=== PATIENT | female | born 1975 | race Caucasian/White ===

== ENCOUNTER → 2019-12-14 12:54 | Outpatient (CLI) | payer OTHER, MEDICAID, SELFPAY ==
--- NOTE | 2019-12-14 12:57 | DI.RAD.S_ITS ---
PROCEDURE: XR CHEST 2V INDICATIONS: pectus excavatum TECHNIQUE: 2 views of the chest were acquired. COMPARISON: None. FINDINGS: Surgical changes and devices: None. Lungs and pleura: Lungs are clear. No pleural effusions or pneumothorax. Lungs are hyperexpanded. Mediastinum: Mediastinal contours are normal. Heart size is normal. Bones and chest wall: No suspicious bony abnormalities. Soft tissues appear unremarkable. Mild to moderate pectus excavatum is present. IMPRESSION: No acute pulmonary process. Dictated by: Leticia Mancera M.D. on 12/14/2019 at 16:12 Approved by: Leticia Mancera M.D. on 12/14/2019 at 16:13
--- NOTE | 2019-12-14 12:57 | DI.RAD.S_ITS ---
PROCEDURE: XR SHOULDER LT MIN 2V INDICATIONS: Left shoulder pain TECHNIQUE: 3 views of the shoulder were acquired. COMPARISON: None. FINDINGS: Bones: No fractures or dislocations. No suspicious bony lesions. Visualized ribs appear intact. Mild acromioclavicular degenerative narrowing. Mild high riding appearance of the humeral head. Soft tissues: No suspicious soft tissue calcifications. IMPRESSION: 1. High riding appearance of the humeral head, which can be indicative of rotator cuff pathology. Dictated by: Leticia Mancera M.D. on 12/14/2019 at 16:13 Approved by: Leticia Mancera M.D. on 12/14/2019 at 16:16
[2019-12-14 14:04] LABS: Hemoglobin 14.1 g/dL (12.0-16.0)
== END ==
PROVIDERS: PCP Family Medicine; Visit Provider Family Medicine
DX: R07.9 Chest pain, unspecified (principal); M25.512 Pain in left shoulder; Q67.6 Pectus excavatum
CPT/HCPCS: 36415; 71046; 73030; 85018

== ENCOUNTER → 2019-12-22 16:57 | Outpatient (CLI) | payer OTHER, MEDICAID, SELFPAY ==
--- NOTE | 2019-12-27 16:56 | PM.PFT.1 ---
Pulmonary Function Test Referral & Results Date Patient Seen: 12/22/19 Requesting provider: Chu Haider Indication: Pectus excavatum Results: The spirometry demonstrates an FVC of 4.54 L which is 113% of predicted. The FEV1 was measured at 3.57 L which is 111% of predicted. The FEV1/FVC ratio was 79 which is 96% of predicted. Following the administration of bronchodilator there was no significant change to above normal numbers. Lung volumes show an SVC of 4.25 L which is 115% of predicted. The diffusing capacity was measured at 30.31 L which is 107% of predicted. The maximum voluntary ventilation was normal Interpretation: This study demonstrates normal pulmonary function
== END ==
PROVIDERS: PCP Family Medicine; Visit Provider Family Medicine
DX: Q67.6 Pectus excavatum (principal)
CPT/HCPCS: 94060; 94726; 94729

== ENCOUNTER 2020-02-08 13:45 | Outpatient (RCR) | payer OTHER, MEDICAID, SELFPAY ==
--- NOTE | 2020-01-12 17:00 | PT.OPPOC ---
Physical, Occupational & Speech Therapy At [facility] Current Diagnoses Other shoulder lesions, unspecified shoulder (01/12/20) Visit Care Team Role Provider Type Chu Haider MD Attending Provider Physician Primary Care Provider Referring Provider Specialty: Family Practice Address: [address] [place] [address], [id number] Email: [email or web address] Plan Of Care PT-OP-T Assessment and Plan Start: 01/13/20 10:08 Freq: Status: Active Protocol: Document 01/12/20 16:50 (Rec: 01/13/20 13:05 [email or web address]) Physical Therapy Assessment Rehab Potential Rehabilitation Potential Excellent Evaluation Complexity Number of Personal Factors/Comorbidities 0 Number of Body Systems Impaired 1-2 Clinical Presentation at Evaluation Stable Impairments Impairments Functional Activities, Functional Mobility,Pain, Posture,ROM,Soft Tissue Mobility,Strength Goals strength Impairment Pt has 4- to 4+ MMT strength for L shoulder Detention Goal (LTG) Pt will improve her L shoulder strength to 5/5 without any disomfort LTG Duration 8 weeks shoulder IR Impairment lack of IR to peggy/doff clothes Short Term Goal (STG) Pt will increase her IR 10 degrees to improve mobility to wear clothes. STG Duration 4 weeks Glass Handler Goal (LTG) Pt will be able to peggy/doff clothes without any shoulder discomfort. LTG Duration 8 weeks return to sports Impairment unable to do push up/ mountain biking Short Term Goal (STG) Pt will be able to do 10 push ups a day without discomfort STG Duration 4 weeks Detention Goal (LTG) Pt will be able to do 20-30 push ups a day without shoulder discomfort and return to mountain biking twice a month. LTG Duration 8 weeks Quickdash Impairment pt scores 22.72 Detention Goal (LTG) Pt will score below 10 on quickdash to improve her quality of life. LTG Duration 8 weeks Assessment Summary Assessment Pt is a 44 yo right handed dominant female presented to clinic L shoulder pain and weakness. Upon assessment, pt presents possible supraspinatus and infraspinatus strain d/t a fall. Her radiating pain to bicep was reproduced with resistive ER and active end range of IR, but negative for elbow flexion or biceps special tests. Pt currently has close to WNL ROM but still has weakness for overhead activities such as peggy/doff clothes and reaching. pt will benefit from skilled therapy to improve her overall ROM and overhead strength in order to return to her sports activities such as mountain biking and daily push ups. Physical Therapy Plan Frequency and Duration Frequency of Treatment 2x/Week Duration of Treatment 8 weeks Plan of Care Start Date 01/13/20 Plan of Care End Date 03/13/20 Therapeutic Interventions Therapeutic Interventions Home Exercise Program,Joint Mobilizations,Manual Therapy, Neuromuscular Re-education, Patient/Caregiver Education, Self-Care/Home Management,Soft Tissue Mobilization,Taping, Therapeutic Activities, Therapeutic Exercises Modalities Cold Pack/Ice Massage,Electric Stimulation,Hot Packs, Infrared Therapy,Iontophoresis ,Traction- Mechanical, Ultrasound Next Visit Focus/Plan Next Note Type Treatment Note Next Visit Plan start with UBE manual therapy for posterior glide at GH IR and ER mobility scap stabilization T/S mobility isometric strengtehning Plan of Care Dates Plan of Care Start Date 01/13/20 Plan of Care End Date 03/13/20 Electronically Signed by: Luis Miguel Guillory PT 01/13/20 [id number] Please Sign and Return: I have reviewed this Plan of Care and certify that the skilled therapy services above are required to meet the patient?s needs. Physician Signature Date Printed Name and Credentials Clinical Instructor Signature Printed Name and Credentials
--- NOTE | 2020-01-12 17:00 | PT.OIE ---
Current Diagnoses Other shoulder lesions, unspecified shoulder (01/12/20) Past Medical History (Last Updated 01/10/20 @ 20:14 by Rebecca Vasquez) Rosacea (Chronic ~2012) Past Surgical History (Last Updated 01/10/20 @ 20:14 by Rebecca Vasquez) Anesthesia (Resolved) History of appendectomy (Resolved ~1987) History of repair of ACL (Resolved ~2001) Visit Care Team Role Provider Type Chu Haider MD Attending Provider Physician Primary Care Provider Referring Provider Specialty: [facility] Address: [address] [place] [address] Email: [email or web address] Physical Therapy Initial Evaluation PT-OP-A Visit Information Start: 01/13/20 10:08 Freq: Status: Active Protocol: Document 01/12/20 16:50 HH (Rec: 01/13/20 10:21 HH [email or web address]) Out-Patient Physical Therapy Visit Information Visit Information Visit Type Initial Evaluation Visit Start Time 16:50 Visit Stop Time 17:30 Total Visit Minutes 40 Visit Number 1/9 Number of TEST PULLER Visits 0 Evaluation Information Evaluation Date 01/12/20 PT-OP-B Current Condition Start: 01/13/20 10:08 Freq: Status: Active Protocol: Document 01/12/20 16:50 HH (Rec: 01/13/20 10:21 HH [email or web address]) Current Condition History of Current Condition Onset Date Sep, 2019 Current Complaints L shoulder pain, weakness and difficulty with overhead movements History of Current Condition Pt is a44 yo R- handed dominant female presented to clinic with L shoulder pain along with weakness for overhead activities. Pain started from a fall September who landed on her deltoid region. Patient was not able to raise her arms above her head for the following few weeks with significant pain. She states it is not too painful now, and range of motion is slowly improving. There is no numbness or tingling associated with it. she describes she has good or bad days but does not know why. She went to [employer] country skiing recently and that actually made her feel better. She has tried ibuprofen and mainly just ignoring it and doing maneuvers where she does not have to manipulate her L shoulder much. Pt had a x-ray on 12/14/19 and was dx with Subacromial bursitis and impingement syndrome of the shoulder with supraspinatus tendinitis. On the other hand, pt had a very active lifestyle before the injury who does 20-30 push ups a day and mountain biking couple times a month. Prior Treatments and Tests x-ray 12/14/19 1. High riding appearance of the humeral head, which can be indicative of rotator cuff pathology. Treatment Goals Patient/Caregiver Goals 1. To be able to do push ups 20/30 times a day 2. mountain bike multiple times a month 3. peggy/doff her clothes without pain Prior Functional Status Baseline Function- ADL's Independent Baseline Function- Mobility Independent Current Functional Impairments (Reported) Functional Limitations- ADL's modified independent with primarily using her R LE to assist in peggy/doff clothes. Functional Limitations- Recreation/ unable to do push up and Hobbies returne to mountain biking. PT-OP-C Subjective Start: 01/13/20 10:08 Freq: Status: Active Protocol: Document 01/12/20 16:50 HH (Rec: 01/13/20 10:21 [email or web address]) OP-PT Subjective Patient Comments Patient Comments its gotten a lot better than before but still have difficulty doing overhead activtiies. Patient Questionnaires Quick Dash- Upper Extremity Quick Dash UE Score 22.72 Quick Dash UE Impairment 20 to 39% Impaired (Score 20- 39) PT-OP-E Functional Tests Start: 01/13/20 10:08 Freq: Status: Active Protocol: Document 01/12/20 16:50 HH (Rec: 01/13/20 13:06 [email or web address]) Functional Tests Apley's Scratch Test Action 2- Left top of R trap Action 2- Right top of L scap spine Action 3- Left inferior boarder of R scap Action 3- Right medial boarder of L scap PT-OP-F Manual Assessment Start: 01/13/20 10:08 Freq: Status: Active Protocol: Document 01/12/20 16:50 HH (Rec: 01/13/20 13:05 [email or web address]) Manual Assessments Soft Tissue Assessment Soft Tissue Mobility Assessment Tenderness to pressure at supraspinatus and infraspinatus insertion. Joint Mobility Assessment Joint Mobility Assessment mod anterior GH translation during ER/ IR and extension compared to R PT-OP-K Range of Motion Start: 01/13/20 10:08 Freq: Status: Active Protocol: Document 01/12/20 16:50 HH (Rec: 01/13/20 13:05 [email or web address]) Shoulder Goniometric Range of Motion Shoulder Right Active Shoulder ROM WFL Yes Testing Position Standing Flexion 175 Extension 60 Abduction 170 External Rotation at 90 degrees 90 Abduction Internal Rotation 90 Left Active Shoulder ROM WFL Yes Testing Position Standing Flexion 165 Extension 55 Abduction 160 External Rotation at 90 degrees 88 Abduction Internal Rotation 72 Shoulder ROM Limitations Shoulder ROM Limitations Soft Tissue Tightness,Pain Comments radiating L shoulder pain to bicep during internal rotation at endrange PT-OP-L Special Tests Start: 01/13/20 10:08 Freq: Status: Active Protocol: Document 01/12/20 16:50 HH (Rec: 01/13/20 13:05 [email or web address]) Special Tests Shoulder Special Tests elbow lift Test Results +ve L Comments instruction : L hand on right shoulder and lift elbow pt unable to perform lift off. Lift-Off Rotator Cuff Test Results -ve Yergason's Biceps Test Results -ve Speed's Biceps Test Results -ve Empty Can Test Results +ve L Comments unable to point thumb down to floor d/t pain Belly Press Test Results -ve B AC Joint Compression Test Results +ve L side PT-OP-M Strength Start: 01/13/20 10:08 Freq: Status: Active Protocol: Document 01/12/20 16:50 HH (Rec: 01/13/20 13:05 [email or web address]) Shoulder Strength Shoulder Manual Muscle Testing Right Flexion 5 Normal Extension 5 Normal Abduction (C5) 5 Normal Adduction 5 Normal External Rotation 5 Normal Internal Rotation 5 Normal Reason Not Measured Pain Left Flexion 4 Good Extension 4+ Good+ Abduction (C5) 4- Good- External Rotation 4- Good- Internal Rotation 4+ Good+ Reason Not Measured Pain Comments L radiating shoulder pain reproduced with resisted L ER with elbow at 90 degrees. PT-OP-T Assessment and Plan Start: 01/13/20 10:08 Freq: Status: Active Protocol: Document 01/12/20 16:50 HH (Rec: 01/13/20 13:05 [email or web address]) Physical Therapy Assessment Rehab Potential Rehabilitation Potential Excellent Evaluation Complexity Number of Personal Factors/Comorbidities 0 Number of Body Systems Impaired 1-2 Clinical Presentation at Evaluation Stable Impairments Impairments Functional Activities, Functional Mobility,Pain, Posture,ROM,Soft Tissue Mobility,Strength Goals strength Impairment Pt has 4- to 4+ MMT strength for L shoulder Assisted Goal (LTG) Pt will improve her L shoulder strength to 5/5 without any disomfort LTG Duration 8 weeks shoulder IR Impairment lack of IR to peggy/doff clothes Short Term Goal (STG) Pt will increase her IR 10 degrees to improve mobility to wear clothes. STG Duration 4 weeks Criminal Attorney Goal (LTG) Pt will be able to peggy/doff clothes without any shoulder discomfort. LTG Duration 8 weeks return to sports Impairment unable to do push up/ mountain biking Short Term Goal (STG) Pt will be able to do 10 push ups a day without discomfort STG Duration 4 weeks Criminal Attorney Goal (LTG) Pt will be able to do 20-30 push ups a day without shoulder discomfort and return to mountain biking twice a month. LTG Duration 8 weeks Quickdash Impairment pt scores 22.72 Criminal Attorney Goal (LTG) Pt will score below 10 on quickdash to improve her quality of life. LTG Duration 8 weeks Assessment Summary Assessment Pt is a 44 yo right handed dominant female presented to clinic L shoulder pain and weakness. Upon assessment, pt presents possible supraspinatus and infraspinatus strain d/t a fall. Her radiating pain to bicep was reproduced with resistive ER and active end range of IR, but negative for elbow flexion or biceps special tests. Pt currently has close to WNL ROM but still has weakness for overhead activities such as peggy/doff clothes and reaching. pt will benefit from skilled therapy to improve her overall ROM and overhead strength in order to return to her sports activities such as mountain biking and daily push ups. Physical Therapy Plan Frequency and Duration Frequency of Treatment 2x/Week Duration of Treatment 8 weeks Plan of Care Start Date 01/13/20 Plan of Care End Date 03/13/20 Therapeutic Interventions Therapeutic Interventions Home Exercise Program,Joint Mobilizations,Manual Therapy, Neuromuscular Re-education, Patient/Caregiver Education, Self-Care/Home Management,Soft Tissue Mobilization,Taping, Therapeutic Activities, Therapeutic Exercises Modalities Cold Pack/Ice Massage,Electric Stimulation,Hot Packs, Infrared Therapy,Iontophoresis ,Traction- Mechanical, Ultrasound Next Visit Focus/Plan Next Note Type Treatment Note Next Visit Plan start with UBE manual therapy for posterior glide at IR and ER mobility scap stabilization T/S mobility isometric strengtehning
--- NOTE | 2020-01-13 13:06 | PT.OIE ---
Current Diagnoses Other shoulder lesions, unspecified shoulder (01/12/20) Past Medical History (Last Updated 01/10/20 @ 20:14 by Rebecca Vasquez) Rosacea (Chronic ~2012) Past Surgical History (Last Updated 01/10/20 @ 20:14 by Rebecca Vasquez) Anesthesia (Resolved) History of appendectomy (Resolved ~1987) History of repair of ACL (Resolved ~2001) Visit Care Team Role Provider Type Chu Haider MD Attending Provider Physician Primary Care Provider Referring Provider Specialty: [facility] Address: [address] [place] [address] Email: [email or web address] Physical Therapy Initial Evaluation PT-OP-A Visit Information Start: 01/13/20 10:08 Freq: Status: Active Protocol: Document 01/12/20 16:50 HH (Rec: 01/13/20 10:21 HH [email or web address]) Out-Patient Physical Therapy Visit Information Visit Information Visit Type Initial Evaluation Visit Start Time 16:50 Visit Stop Time 17:30 Total Visit Minutes 40 Visit Number 1/9 Number of WRAPPER CASER Visits 0 Evaluation Information Evaluation Date 01/12/20 PT-OP-B Current Condition Start: 01/13/20 10:08 Freq: Status: Active Protocol: Document 01/12/20 16:50 HH (Rec: 01/13/20 10:21 HH [email or web address]) Current Condition History of Current Condition Onset Date Sep, 2019 Current Complaints L shoulder pain, weakness and difficulty with overhead movements History of Current Condition Pt is a44 yo R- handed dominant female presented to clinic with L shoulder pain along with weakness for overhead activities. Pain started from a fall September who landed on her deltoid region. Patient was not able to raise her arms above her head for the following few weeks with significant pain. She states it is not too painful now, and range of motion is slowly improving. There is no numbness or tingling associated with it. she describes she has good or bad days but does not know why. She went to [employer] country skiing recently and that actually made her feel better. She has tried ibuprofen and mainly just ignoring it and doing maneuvers where she does not have to manipulate her L shoulder much. Pt had a x-ray on 12/14/19 and was dx with Subacromial bursitis and impingement syndrome of the shoulder with supraspinatus tendinitis. On the other hand, pt had a very active lifestyle before the injury who does 20-30 push ups a day and mountain biking couple times a month. Prior Treatments and Tests x-ray 12/14/19 1. High riding appearance of the humeral head, which can be indicative of rotator cuff pathology. Treatment Goals Patient/Caregiver Goals 1. To be able to do push ups 20/30 times a day 2. mountain bike multiple times a month 3. peggy/doff her clothes without pain Prior Functional Status Baseline Function- ADL's Independent Baseline Function- Mobility Independent Current Functional Impairments (Reported) Functional Limitations- ADL's modified independent with primarily using her R LE to assist in peggy/doff clothes. Functional Limitations- Recreation/ unable to do push up and Hobbies returne to mountain biking. PT-OP-C Subjective Start: 01/13/20 10:08 Freq: Status: Active Protocol: Document 01/12/20 16:50 HH (Rec: 01/13/20 10:21 [email or web address]) OP-PT Subjective Patient Comments Patient Comments its gotten a lot better than before but still have difficulty doing overhead activtiies. Patient Questionnaires Quick Dash- Upper Extremity Quick Dash UE Score 22.72 Quick Dash UE Impairment 20 to 39% Impaired (Score 20- 39) PT-OP-E Functional Tests Start: 01/13/20 10:08 Freq: Status: Active Protocol: Document 01/12/20 16:50 HH (Rec: 01/13/20 13:06 [email or web address]) Functional Tests Apley's Scratch Test Action 2- Left top of R trap Action 2- Right top of L scap spine Action 3- Left inferior boarder of R scap Action 3- Right medial boarder of L scap PT-OP-F Manual Assessment Start: 01/13/20 10:08 Freq: Status: Active Protocol: Document 01/12/20 16:50 HH (Rec: 01/13/20 13:05 [email or web address]) Manual Assessments Soft Tissue Assessment Soft Tissue Mobility Assessment Tenderness to pressure at supraspinatus and infraspinatus insertion. Joint Mobility Assessment Joint Mobility Assessment mod anterior GH translation during ER/ IR and extension compared to R PT-OP-K Range of Motion Start: 01/13/20 10:08 Freq: Status: Active Protocol: Document 01/12/20 16:50 HH (Rec: 01/13/20 13:05 [email or web address]) Shoulder Goniometric Range of Motion Shoulder Right Active Shoulder ROM WFL Yes Testing Position Standing Flexion 175 Extension 60 Abduction 170 External Rotation at 90 degrees 90 Abduction Internal Rotation 90 Left Active Shoulder ROM WFL Yes Testing Position Standing Flexion 165 Extension 55 Abduction 160 External Rotation at 90 degrees 88 Abduction Internal Rotation 72 Shoulder ROM Limitations Shoulder ROM Limitations Soft Tissue Tightness,Pain Comments radiating L shoulder pain to bicep during internal rotation at endrange PT-OP-L Special Tests Start: 01/13/20 10:08 Freq: Status: Active Protocol: Document 01/12/20 16:50 HH (Rec: 01/13/20 13:05 [email or web address]) Special Tests Shoulder Special Tests elbow lift Test Results +ve L Comments instruction : L hand on right shoulder and lift elbow pt unable to perform lift off. Lift-Off Rotator Cuff Test Results -ve Yergason's Biceps Test Results -ve Speed's Biceps Test Results -ve Empty Can Test Results +ve L Comments unable to point thumb down to floor d/t pain Belly Press Test Results -ve B AC Joint Compression Test Results +ve L side PT-OP-M Strength Start: 01/13/20 10:08 Freq: Status: Active Protocol: Document 01/12/20 16:50 HH (Rec: 01/13/20 13:05 [email or web address]) Shoulder Strength Shoulder Manual Muscle Testing Right Flexion 5 Normal Extension 5 Normal Abduction (C5) 5 Normal Adduction 5 Normal External Rotation 5 Normal Internal Rotation 5 Normal Reason Not Measured Pain Left Flexion 4 Good Extension 4+ Good+ Abduction (C5) 4- Good- External Rotation 4- Good- Internal Rotation 4+ Good+ Reason Not Measured Pain Comments L radiating shoulder pain reproduced with resisted L ER with elbow at 90 degrees. PT-OP-T Assessment and Plan Start: 01/13/20 10:08 Freq: Status: Active Protocol: Document 01/12/20 16:50 HH (Rec: 01/13/20 13:05 [email or web address]) Physical Therapy Assessment Rehab Potential Rehabilitation Potential Excellent Evaluation Complexity Number of Personal Factors/Comorbidities 0 Number of Body Systems Impaired 1-2 Clinical Presentation at Evaluation Stable Impairments Impairments Functional Activities, Functional Mobility,Pain, Posture,ROM,Soft Tissue Mobility,Strength Goals strength Impairment Pt has 4- to 4+ MMT strength for L shoulder Nursing Home Goal (LTG) Pt will improve her L shoulder strength to 5/5 without any disomfort LTG Duration 8 weeks shoulder IR Impairment lack of IR to peggy/doff clothes Short Term Goal (STG) Pt will increase her IR 10 degrees to improve mobility to wear clothes. STG Duration 4 weeks Foreign Language Teacher Goal (LTG) Pt will be able to peggy/doff clothes without any shoulder discomfort. LTG Duration 8 weeks return to sports Impairment unable to do push up/ mountain biking Short Term Goal (STG) Pt will be able to do 10 push ups a day without discomfort STG Duration 4 weeks Foreign Language Teacher Goal (LTG) Pt will be able to do 20-30 push ups a day without shoulder discomfort and return to mountain biking twice a month. LTG Duration 8 weeks Quickdash Impairment pt scores 22.72 Foreign Language Teacher Goal (LTG) Pt will score below 10 on quickdash to improve her quality of life. LTG Duration 8 weeks Assessment Summary Assessment Pt is a 44 yo right handed dominant female presented to clinic L shoulder pain and weakness. Upon assessment, pt presents possible supraspinatus and infraspinatus strain d/t a fall. Her radiating pain to bicep was reproduced with resistive ER and active end range of IR, but negative for elbow flexion or biceps special tests. Pt currently has close to WNL ROM but still has weakness for overhead activities such as peggy/doff clothes and reaching. pt will benefit from skilled therapy to improve her overall ROM and overhead strength in order to return to her sports activities such as mountain biking and daily push ups. Physical Therapy Plan Frequency and Duration Frequency of Treatment 2x/Week Duration of Treatment 8 weeks Plan of Care Start Date 01/13/20 Plan of Care End Date 03/13/20 Therapeutic Interventions Therapeutic Interventions Home Exercise Program,Joint Mobilizations,Manual Therapy, Neuromuscular Re-education, Patient/Caregiver Education, Self-Care/Home Management,Soft Tissue Mobilization,Taping, Therapeutic Activities, Therapeutic Exercises Modalities Cold Pack/Ice Massage,Electric Stimulation,Hot Packs, Infrared Therapy,Iontophoresis ,Traction- Mechanical, Ultrasound Next Visit Focus/Plan Next Note Type Treatment Note Next Visit Plan start with UBE manual therapy for posterior glide at IR and ER mobility scap stabilization T/S mobility isometric strengtehning
--- NOTE | 2020-01-14 13:00 | PT.OTN ---
Current Diagnoses Other shoulder lesions, unspecified shoulder (01/14/20) Physical Therapy Treatment Note PT-OP-A Visit Information Start: 01/13/20 10:08 Freq: Status: Active Protocol: Document 01/14/20 13:00 DLM (Rec: 01/15/20 17:40 DLM [id number]) Out-Patient Physical Therapy Visit Information Visit Information Visit Type Treatment Note Visit Start Time 13:00 Visit Stop Time 13:50 Total Visit Minutes 50 Visit Number 2/9 Number of OPERATIONAL RISK CONSULTANT Visits 0 Evaluation Information Evaluation Date 01/12/20 PT-OP-B Current Condition Start: 01/13/20 10:08 Freq: Status: Active Protocol: Document 01/12/20 16:50 HH (Rec: 01/13/20 10:21 HH [email or web address]) Current Condition History of Current Condition Onset Date Sep, 2019 Current Complaints L shoulder pain, weakness and difficulty with overhead movements History of Current Condition Pt is a44 yo R- handed dominant female presented to clinic with L shoulder pain along with weakness for overhead activities. Pain started from a fall September who landed on her deltoid region. Patient was not able to raise her arms above her head for the following few weeks with significant pain. She states it is not too painful now, and range of motion is slowly improving. There is no numbness or tingling associated with it. she describes she has good or bad days but does not know why. She went to [employer] skiing recently and that actually made her feel better. She has tried ibuprofen and mainly just ignoring it and doing maneuvers where she does not have to manipulate her L shoulder much. Pt had a x-ray on 12/14/19 and was dx with Subacromial bursitis and impingement syndrome of the shoulder with supraspinatus tendinitis. On the other hand, pt had a very active lifestyle before the injury who does 20-30 push ups a day and mountain biking couple times a month. Prior Treatments and Tests x-ray 12/14/19 1. High riding appearance of the humeral head, which can be indicative of rotator cuff pathology. Treatment Goals Patient/Caregiver Goals 1. To be able to do push ups 20/30 times a day 2. mountain bike multiple times a month 3. peggy/doff her clothes without pain Prior Functional Status Baseline Function- ADL's Independent Baseline Function- Mobility Independent Current Functional Impairments (Reported) Functional Limitations- ADL's modified independent with primarily using her R LE to assist in peggy/doff clothes. Functional Limitations- Recreation/ unable to do push up and Hobbies returne to mountain biking. PT-OP-C Subjective Start: 01/13/20 10:08 Freq: Status: Active Protocol: Document 01/14/20 13:00 DLM (Rec: 01/15/20 17:40 DLM [id number]) OP-PT Subjective Patient Comments Patient Comments She has been unsure of what exercises to do for her shoulder. She is only getting pain with certain movements such as putting on a shirt. PT-OP-E Functional Tests Start: 01/13/20 10:08 Freq: Status: Active Protocol: Document 01/12/20 16:50 HH (Rec: 01/13/20 13:06 HH [email or web address]) Functional Tests Apley's Scratch Test Action 2- Left top of R trap Action 2- Right top of L scap spine Action 3- Left inferior boarder of R scap Action 3- Right medial boarder of L scap PT-OP-F Manual Assessment Start: 01/13/20 10:08 Freq: Status: Active Protocol: Document 01/12/20 16:50 HH (Rec: 01/13/20 13:05 HH [email or web address]) Manual Assessments Soft Tissue Assessment Soft Tissue Mobility Assessment Tenderness to pressure at supraspinatus and infraspinatus insertion. Joint Mobility Assessment Joint Mobility Assessment mod anterior GH translation during ER/ IR and extension compared to R PT-OP-K Range of Motion Start: 01/13/20 10:08 Freq: Status: Active Protocol: Document 01/12/20 16:50 HH (Rec: 01/13/20 13:05 HH [email or web address]) Shoulder Goniometric Range of Motion Shoulder Right Active Shoulder ROM WFL Yes Testing Position Standing Flexion 175 Extension 60 Abduction 170 External Rotation at 90 degrees 90 Abduction Internal Rotation 90 Left Active Shoulder ROM WFL Yes Testing Position Standing Flexion 165 Extension 55 Abduction 160 External Rotation at 90 degrees 88 Abduction Internal Rotation 72 Shoulder ROM Limitations Shoulder ROM Limitations Soft Tissue Tightness,Pain Comments radiating L shoulder pain to bicep during internal rotation at endrange PT-OP-L Special Tests Start: 01/13/20 10:08 Freq: Status: Active Protocol: Document 01/12/20 16:50 HH (Rec: 01/13/20 13:05 [email or web address]) Special Tests Shoulder Special Tests elbow lift Test Results +ve L Comments instruction : L hand on right shoulder and lift elbow pt unable to perform lift off. Lift-Off Rotator Cuff Test Results -ve Yergason's Biceps Test Results -ve Speed's Biceps Test Results -ve Empty Can Test Results +ve L Comments unable to point thumb down to floor d/t pain Belly Press Test Results -ve B AC Joint Compression Test Results +ve L side PT-OP-M Strength Start: 01/13/20 10:08 Freq: Status: Active Protocol: Document 01/12/20 16:50 HH (Rec: 01/13/20 13:05 [email or web address]) Shoulder Strength Shoulder Manual Muscle Testing Right Flexion 5 Normal Extension 5 Normal Abduction (C5) 5 Normal Adduction 5 Normal External Rotation 5 Normal Internal Rotation 5 Normal Reason Not Measured Pain Left Flexion 4 Good Extension 4+ Good+ Abduction (C5) 4- Good- External Rotation 4- Good- Internal Rotation 4+ Good+ Reason Not Measured Pain Comments L radiating shoulder pain reproduced with resisted L ER with elbow at 90 degrees. PT-OP-Q Treatments Start: 01/13/20 10:08 Freq: Status: Active Protocol: Document 01/14/20 13:00 DLM (Rec: 01/15/20 17:40 DLM [id number]) Cardio Equipment Upper Body Ergometer (UBE) Duration (Minutes) 6 Height shoulder height Other 3' forward and 3' backwards Therapeutic Exercises Sidelying Exercises Stabalization Circles Sidelying Exercise Name small circles with UE at 90 degrees ABD Side left Resistance slow pace for stabalization training Reps/Minutes 10 CW/10 CCW x 3 sets Shoulder ER Sidelying Exercise Name External rotation Side left Resistance 0-1# Reps/Minutes 10 reps w/o wt and 10 reps 1# Shoulder Abduction Sidelying Exercise Name painfree ROm Side left Resistance active Reps/Minutes 10 reps Standing Exercises Shoulder Flexion Side left Resistance L1 exercise band Reps/Minutes 15 reps Shoulder Extension Side bilateral Resistance L1 exercise band Reps/Minutes 15 reps Shoulder IR Standing Exercise Name roll at elbow Side left Resistance L1 exercise band Reps/Minutes 15 reps Shoulder ER Standing Exercise Name roll at elbow Side left Resistance L1 exercise band Reps/Minutes 15 reps Manual Therapy Treatment Soft Tissue Mobilization 1 Body Location anterior left shoulder Mobilization Type Cross-Friction Intensity/Depth Superficial Body Position Supine Joint Mobilizations 1 Joint Glenohumeral joint Direction post and inferior Grade II Body Position Supine Self-Care/Home Management Treatment Education Patient Education Home Exercise Program,Pain Management Other Education provided written HEP of standing ex with exercise band (paper copy in chart) and provided L1 exercise band for home use PT-OP-R Modalities Start: 01/13/20 10:08 Freq: Status: Active Protocol: Document 01/14/20 13:00 DLM (Rec: 01/15/20 17:40 DLM [id number]) Hot Pack/Cold Pack Treatment Cold Pack Location left shoulder Patient Position Supine Treatment Duration (minutes) 10 Patient Tolerance Good Comments at end of treatment PT-OP-T Assessment and Plan Start: 01/13/20 10:08 Freq: Status: Active Protocol: Document 01/14/20 13:00 DLM (Rec: 01/15/20 17:40 DLM [id number]) Physical Therapy Assessment Goals strength Impairment Pt has 4- to 4+ MMT strength for L shoulder Care Home Goal (LTG) Pt will improve her L shoulder strength to 5/5 without any disomfort LTG Duration 8 weeks shoulder IR Impairment lack of IR to peggy/doff clothes Short Term Goal (STG) Pt will increase her IR 10 degrees to improve mobility to wear clothes. STG Duration 4 weeks Care Home Goal (LTG) Pt will be able to peggy/doff clothes without any shoulder discomfort. LTG Duration 8 weeks return to sports Impairment unable to do push up/ mountain biking Short Term Goal (STG) Pt will be able to do 10 push ups a day without discomfort STG Duration 4 weeks Care Home Goal (LTG) Pt will be able to do 20-30 push ups a day without shoulder discomfort and return to mountain biking twice a month. LTG Duration 8 weeks Quickdash Impairment pt scores 22.72 Care Home Goal (LTG) Pt will score below 10 on quickdash to improve her quality of life. LTG Duration 8 weeks Progress Towards Goals Progress Towards Goals Progressing Toward Goals Assessment Summary Assessment She tolerated treatment session well. Muscle fatigue noted with exercises. Performed all exercises in pain-free ROM. Started exercise band routine with low resistance due to how quickly she fatigues during exercises . Physical Therapy Plan Frequency and Duration Frequency of Treatment 2x/Week Duration of Treatment 8 weeks Plan of Care Start Date 01/13/20 Plan of Care End Date 03/13/20 Therapeutic Interventions Therapeutic Interventions Home Exercise Program,Joint Mobilizations,Manual Therapy, Neuromuscular Re-education, Patient/Caregiver Education, Self-Care/Home Management,Soft Tissue Mobilization,Taping, Therapeutic Activities, Therapeutic Exercises Modalities Cold Pack/Ice Massage,Electric Stimulation,Hot Packs, Infrared Therapy,Iontophoresis ,Ultrasound Next Visit Focus/Plan Next Note Type Treatment Note Next Visit Plan Add scapular stabalization exercises, review HEP
--- NOTE | 2020-01-18 15:20 | PT.OTN ---
Current Diagnoses Other shoulder lesions, unspecified shoulder (01/18/20) Physical Therapy Treatment Note PT-OP-A Visit Information Start: 01/13/20 10:08 Freq: Status: Active Protocol: Document 01/18/20 14:39 HH (Rec: 01/18/20 15:20 HH [id number]) Out-Patient Physical Therapy Visit Information Visit Information Visit Type Treatment Note Visit Start Time 14:39 Visit Stop Time 15:15 Total Visit Minutes 41 Visit Number 3/9 Number of CRATER AND PACKER Visits 0 PT-OP-B Current Condition Start: 01/13/20 10:08 Freq: Status: Active Protocol: Document 01/12/20 16:50 HH (Rec: 01/13/20 10:21 HH [email or web address]) Current Condition History of Current Condition Onset Date Sep, 2019 Current Complaints L shoulder pain, weakness and difficulty with overhead movements History of Current Condition Pt is a44 yo R- handed dominant female presented to clinic with L shoulder pain along with weakness for overhead activities. Pain started from a fall September who landed on her deltoid region. Patient was not able to raise her arms above her head for the following few weeks with significant pain. She states it is not too painful now, and range of motion is slowly improving. There is no numbness or tingling associated with it. she describes she has good or bad days but does not know why. She went to [employer] [place] recently and that actually made her feel better. She has tried ibuprofen and mainly just ignoring it and doing maneuvers where she does not have to manipulate her L shoulder much. Pt had a x-ray on 12/14/19 and was dx with Subacromial bursitis and impingement syndrome of the shoulder with supraspinatus tendinitis. On the other hand, pt had a very active lifestyle before the injury who does 20-30 push ups a day and mountain biking couple times a month. Prior Treatments and Tests x-ray 12/14/19 1. High riding appearance of the humeral head, which can be indicative of rotator cuff pathology. Treatment Goals Patient/Caregiver Goals 1. To be able to do push ups 20/30 times a day 2. mountain bike multiple times a month 3. peggy/doff her clothes without pain Prior Functional Status Baseline Function- ADL's Independent Baseline Function- Mobility Independent Current Functional Impairments (Reported) Functional Limitations- ADL's modified independent with primarily using her R LE to assist in peggy/doff clothes. Functional Limitations- Recreation/ unable to do push up and Hobbies returne to mountain biking. PT-OP-C Subjective Start: 01/13/20 10:08 Freq: Status: Active Protocol: Document 01/18/20 14:39 HH (Rec: 01/18/20 15:20 HH [id number]) OP-PT Subjective Patient Comments Patient Comments I went for mountain biking today but i did feel sore on my shoulder. I did feel very sore after last visit too but i was able to recover within few days. Patient Reported Progress Same PT-OP-E Functional Tests Start: 01/13/20 10:08 Freq: Status: Active Protocol: Document 01/12/20 16:50 HH (Rec: 01/13/20 13:06 [email or web address]) Functional Tests Apley's Scratch Test Action 2- Left top of R trap Action 2- Right top of L scap spine Action 3- Left inferior boarder of R scap Action 3- Right medial boarder of L scap PT-OP-F Manual Assessment Start: 01/13/20 10:08 Freq: Status: Active Protocol: Document 01/12/20 16:50 HH (Rec: 01/13/20 13:05 HH [email or web address]) Manual Assessments Soft Tissue Assessment Soft Tissue Mobility Assessment Tenderness to pressure at supraspinatus and infraspinatus insertion. Joint Mobility Assessment Joint Mobility Assessment mod anterior GH translation during ER/ IR and extension compared to R PT-OP-K Range of Motion Start: 01/13/20 10:08 Freq: Status: Active Protocol: Document 01/12/20 16:50 HH (Rec: 01/13/20 13:05 [email or web address]) Shoulder Goniometric Range of Motion Shoulder Right Active Shoulder ROM WFL Yes Testing Position Standing Flexion 175 Extension 60 Abduction 170 External Rotation at 90 degrees 90 Abduction Internal Rotation 90 Left Active Shoulder ROM WFL Yes Testing Position Standing Flexion 165 Extension 55 Abduction 160 External Rotation at 90 degrees 88 Abduction Internal Rotation 72 Shoulder ROM Limitations Shoulder ROM Limitations Soft Tissue Tightness,Pain Comments radiating L shoulder pain to bicep during internal rotation at endrange PT-OP-L Special Tests Start: 01/13/20 10:08 Freq: Status: Active Protocol: Document 01/12/20 16:50 HH (Rec: 01/13/20 13:05 [email or web address]) Special Tests Shoulder Special Tests elbow lift Test Results +ve L Comments instruction : L hand on right shoulder and lift elbow pt unable to perform lift off. Lift-Off Rotator Cuff Test Results -ve Yergason's Biceps Test Results -ve Speed's Biceps Test Results -ve Empty Can Test Results +ve L Comments unable to point thumb down to floor d/t pain Belly Press Test Results -ve B AC Joint Compression Test Results +ve L side PT-OP-M Strength Start: 01/13/20 10:08 Freq: Status: Active Protocol: Document 01/12/20 16:50 HH (Rec: 01/13/20 13:05 [email or web address]) Shoulder Strength Shoulder Manual Muscle Testing Right Flexion 5 Normal Extension 5 Normal Abduction (C5) 5 Normal Adduction 5 Normal External Rotation 5 Normal Internal Rotation 5 Normal Reason Not Measured Pain Left Flexion 4 Good Extension 4+ Good+ Abduction (C5) 4- Good- External Rotation 4- Good- Internal Rotation 4+ Good+ Reason Not Measured Pain Comments L radiating shoulder pain reproduced with resisted L ER with elbow at 90 degrees. PT-OP-Q Treatments Start: 01/13/20 10:08 Freq: Status: Active Protocol: Document 01/18/20 14:39 HH (Rec: 01/18/20 15:20 [id number]) Therapeutic Exercises Supine Exercises supine ER/IR Supine Exercise Name UE and 90 abduction Side left Reps/Minutes 2 mins Comments c/o at end range IR Sidelying Exercises Stabalization Circles Sidelying Exercise Name small circles with UE at 90 degrees ABD Side left Resistance slow pace for stabalization training Reps/Minutes 10 CW/10 CCW x 3 sets Shoulder Abduction Sidelying Exercise Name painfree ROm Side left Resistance active Reps/Minutes 10 reps Standing Exercises scap retraction Equipment Used level 1 band Reps/Minutes 10 x2 Shoulder Flexion Side left Resistance L1 exercise band Reps/Minutes 15 reps Shoulder Extension Side bilateral Resistance L1 exercise band Reps/Minutes 15 reps Shoulder IR Standing Exercise Name roll at elbow Side left Resistance L1 exercise band Reps/Minutes 15 reps Shoulder ER Standing Exercise Name roll at elbow Side left Resistance L1 exercise band Reps/Minutes 15 reps Manual Therapy Treatment Soft Tissue Mobilization 1 Body Location anterior left shoulder Mobilization Type Cross-Friction Intensity/Depth Superficial Body Position Supine Joint Mobilizations 1 Joint Glenohumeral joint Direction post and inferior Grade II Body Position Supine Comments with ER/IR PT-OP-R Modalities Start: 01/13/20 10:08 Freq: Status: Active Protocol: Document 01/14/20 13:00 DLM (Rec: 01/15/20 17:40 DLM [id number]) Hot Pack/Cold Pack Treatment Cold Pack Location left shoulder Patient Position Supine Treatment Duration (minutes) 10 Patient Tolerance Good Comments at end of treatment PT-OP-T Assessment and Plan Start: 01/13/20 10:08 Freq: Status: Active Protocol: Document 01/18/20 14:39 HH (Rec: 01/18/20 15:20 HH [id number]) Physical Therapy Assessment Goals strength Impairment Pt has 4- to 4+ MMT strength for L shoulder Health Communications Specialist Goal (LTG) Pt will improve her L shoulder strength to 5/5 without any disomfort LTG Duration 8 weeks shoulder IR Impairment lack of IR to peggy/doff clothes Short Term Goal (STG) Pt will increase her IR 10 degrees to improve mobility to wear clothes. STG Duration 4 weeks Health Communications Specialist Goal (LTG) Pt will be able to peggy/doff clothes without any shoulder discomfort. LTG Duration 8 weeks return to sports Impairment unable to do push up/ mountain biking Short Term Goal (STG) Pt will be able to do 10 push ups a day without discomfort STG Duration 4 weeks Senior Living Goal (LTG) Pt will be able to do 20-30 push ups a day without shoulder discomfort and return to mountain biking twice a month. LTG Duration 8 weeks Assessment Summary Assessment Pt has increased soreness at L shoulder after last session and after mountain biking today. Educated pt on mountain biking safety to prevent falls. Pt fatigue quickly today and cont to have difficulty achieve full range of IR at shoulder abd at 90 degrees but pain free and full range with shoulder at 0 degree. Physical Therapy Plan Next Visit Focus/Plan Next Note Type Treatment Note Next Visit Plan Add scapular stabalization exercises, review HEP IR/ER mobility scap stabilization t/s mobility
--- NOTE | 2020-01-20 16:10 | PT.OTN ---
Current Diagnoses Other shoulder lesions, unspecified shoulder (01/20/20) Physical Therapy Treatment Note PT-OP-A Visit Information Start: 01/13/20 10:08 Freq: Status: Active Protocol: Document 01/20/20 15:16 HH (Rec: 01/20/20 16:07 HH [id number]) Out-Patient Physical Therapy Visit Information Visit Information Visit Type Treatment Note Visit Start Time 15:16 Visit Stop Time 16:00 Total Visit Minutes 44 Visit Number 4/9 Number of MANAGER UNIVERSAL Visits 0 PT-OP-B Current Condition Start: 01/13/20 10:08 Freq: Status: Active Protocol: Document 01/12/20 16:50 HH (Rec: 01/13/20 10:21 HH [email or web address]) Current Condition History of Current Condition Onset Date Sep, 2019 Current Complaints L shoulder pain, weakness and difficulty with overhead movements History of Current Condition Pt is a44 yo R- handed dominant female presented to clinic with L shoulder pain along with weakness for overhead activities. Pain started from a fall September who landed on her deltoid region. Patient was not able to raise her arms above her head for the following few weeks with significant pain. She states it is not too painful now, and range of motion is slowly improving. There is no numbness or tingling associated with it. she describes she has good or bad days but does not know why. She went to [place] country skiing recently and that actually made her feel better. She has tried ibuprofen and mainly just ignoring it and doing maneuvers where she does not have to manipulate her L shoulder much. Pt had a x-ray on 12/14/19 and was dx with Subacromial bursitis and impingement syndrome of the shoulder with supraspinatus tendinitis. On the other hand, pt had a very active lifestyle before the injury who does 20-30 push ups a day and mountain biking couple times a month. Prior Treatments and Tests x-ray 12/14/19 1. High riding appearance of the humeral head, which can be indicative of rotator cuff pathology. Treatment Goals Patient/Caregiver Goals 1. To be able to do push ups 20/30 times a day 2. mountain bike multiple times a month 3. peggy/doff her clothes without pain Prior Functional Status Baseline Function- ADL's Independent Baseline Function- Mobility Independent Current Functional Impairments (Reported) Functional Limitations- ADL's modified independent with primarily using her R LE to assist in peggy/doff clothes. Functional Limitations- Recreation/ unable to do push up and Hobbies returne to mountain biking. PT-OP-C Subjective Start: 01/13/20 10:08 Freq: Status: Active Protocol: Document 01/20/20 15:16 HH (Rec: 01/20/20 16:07 [id number]) OP-PT Subjective Patient Comments Patient Comments I was sore from last visit possibly d/t my mountain biking so i didnt do much the past today but i was able to recover. Patient Reported Progress Same PT-OP-E Functional Tests Start: 01/13/20 10:08 Freq: Status: Active Protocol: Document 01/12/20 16:50 HH (Rec: 01/13/20 13:06 [email or web address]) Functional Tests Apley's Scratch Test Action 2- Left top of R trap Action 2- Right top of L scap spine Action 3- Left inferior boarder of R scap Action 3- Right medial boarder of L scap PT-OP-F Manual Assessment Start: 01/13/20 10:08 Freq: Status: Active Protocol: Document 01/12/20 16:50 HH (Rec: 01/13/20 13:05 [email or web address]) Manual Assessments Soft Tissue Assessment Soft Tissue Mobility Assessment Tenderness to pressure at supraspinatus and infraspinatus insertion. Joint Mobility Assessment Joint Mobility Assessment mod anterior GH translation during ER/ IR and extension compared to R PT-OP-K Range of Motion Start: 01/13/20 10:08 Freq: Status: Active Protocol: Document 01/12/20 16:50 HH (Rec: 01/13/20 13:05 [email or web address]) Shoulder Goniometric Range of Motion Shoulder Right Active Shoulder ROM WFL Yes Testing Position Standing Flexion 175 Extension 60 Abduction 170 External Rotation at 90 degrees 90 Abduction Internal Rotation 90 Left Active Shoulder ROM WFL Yes Testing Position Standing Flexion 165 Extension 55 Abduction 160 External Rotation at 90 degrees 88 Abduction Internal Rotation 72 Shoulder ROM Limitations Shoulder ROM Limitations Soft Tissue Tightness,Pain Comments radiating L shoulder pain to bicep during internal rotation at endrange PT-OP-L Special Tests Start: 01/13/20 10:08 Freq: Status: Active Protocol: Document 01/12/20 16:50 HH (Rec: 01/13/20 13:05 [email or web address]) Special Tests Shoulder Special Tests elbow lift Test Results +ve L Comments instruction : L hand on right shoulder and lift elbow pt unable to perform lift off. Lift-Off Rotator Cuff Test Results -ve Yergason's Biceps Test Results -ve Speed's Biceps Test Results -ve Empty Can Test Results +ve L Comments unable to point thumb down to floor d/t pain Belly Press Test Results -ve B AC Joint Compression Test Results +ve L side PT-OP-M Strength Start: 01/13/20 10:08 Freq: Status: Active Protocol: Document 01/12/20 16:50 (Rec: 01/13/20 13:05 [email or web address]) Shoulder Strength Shoulder Manual Muscle Testing Right Flexion 5 Normal Extension 5 Normal Abduction (C5) 5 Normal Adduction 5 Normal External Rotation 5 Normal Internal Rotation 5 Normal Reason Not Measured Pain Left Flexion 4 Good Extension 4+ Good+ Abduction (C5) 4- Good- External Rotation 4- Good- Internal Rotation 4+ Good+ Reason Not Measured Pain Comments L radiating shoulder pain reproduced with resisted L ER with elbow at 90 degrees. PT-OP-Q Treatments Start: 01/13/20 10:08 Freq: Status: Active Protocol: Document 01/20/20 15:16 (Rec: 01/20/20 16:10 [id number]) Therapeutic Exercises Sidelying Exercises sleeper stretch Sidelying Exercise Name wufemi tennis ball at RTC Side left Reps/Minutes 2 mins Comments for HEP Standing Exercises PVC lift off Side bilateral Equipment Used PVC bar Reps/Minutes 2 mins Comments bar behind back and raise from waist to mid back post capsule stretch Standing Exercise Name with scap retraction Side left Reps/Minutes 2 mins Comments for HEP Manual Therapy Treatment Soft Tissue Mobilization 1 Body Location anterior left shoulder Mobilization Type Cross-Friction Intensity/Depth Superficial Body Position Supine Joint Mobilizations GH joint post glide Joint Axial direction Direction posterior glide Grade II Body Position Supine Comments arm at 90 abd 1 Joint Glenohumeral joint Direction post and inferior Grade II Body Position Supine Comments with ER/IR Manual Traction GH distraction Details elbow flexed Body Position Supine Reps/Duration 10 secs x 10 Comments axial distraction PT-OP-R Modalities Start: 01/13/20 10:08 Freq: Status: Active Protocol: Document 01/14/20 13:00 DLM (Rec: 01/15/20 17:40 DLM [id number]) Hot Pack/Cold Pack Treatment Cold Pack Location left shoulder Patient Position Supine Treatment Duration (minutes) 10 Patient Tolerance Good Comments at end of treatment PT-OP-T Assessment and Plan Start: 01/13/20 10:08 Freq: Status: Active Protocol: Document 01/20/20 15:16 HH (Rec: 01/20/20 16:07 HH [id number]) Physical Therapy Assessment Goals strength Impairment Pt has 4- to 4+ MMT strength for L shoulder It Service Delivery Manager Goal (LTG) Pt will improve her L shoulder strength to 5/5 without any disomfort LTG Duration 8 weeks shoulder IR Impairment lack of IR to peggy/doff clothes Short Term Goal (STG) Pt will increase her IR 10 degrees to improve mobility to wear clothes. STG Duration 4 weeks It Service Delivery Manager Goal (LTG) Pt will be able to peggy/doff clothes without any shoulder discomfort. LTG Duration 8 weeks return to sports Impairment unable to do push up/ mountain biking Short Term Goal (STG) Pt will be able to do 10 push ups a day without discomfort STG Duration 4 weeks Senior Living Goal (LTG) Pt will be able to do 20-30 push ups a day without shoulder discomfort and return to mountain biking twice a month. LTG Duration 8 weeks Quickdash Impairment pt scores 22.72 Senior Living Goal (LTG) Pt will score below 10 on quickdash to improve her quality of life. LTG Duration 8 weeks Assessment Summary Assessment Tx focused on manual therapy today on post glide, GH distraction to improve posterior capsule tightness. Pt was able to reach ~75 degrees IR passively after without pain. Added sleeper stretch, posterior capsule stretch and PVC bar lift off with IR. Physical Therapy Plan Next Visit Focus/Plan Next Note Type Treatment Note Next Visit Plan Add scapular stabalization exercises, review HEP IR/ER mobility scap stabilization t/s mobility
--- NOTE | 2020-01-25 15:53 | PT.OTN ---
Current Diagnoses Other shoulder lesions, unspecified shoulder (01/25/20) Physical Therapy Treatment Note PT-OP-A Visit Information Start: 01/13/20 10:08 Freq: Status: Active Protocol: Document 01/25/20 13:49 EG (Rec: 01/25/20 14:45 EG [email or web address]) Out-Patient Physical Therapy Visit Information Visit Information Visit Type Treatment Note Visit Start Time 13:49 Visit Stop Time 14:30 Total Visit Minutes 41 Visit Number 5/9 Number of DONKEY DOCTOR Visits 0 PT-OP-B Current Condition Start: 01/13/20 10:08 Freq: Status: Active Protocol: Document 01/12/20 16:50 HH (Rec: 01/13/20 10:21 HH [email or web address]) Current Condition History of Current Condition Onset Date Sep, 2019 Current Complaints L shoulder pain, weakness and difficulty with overhead movements History of Current Condition Pt is a44 yo R- handed dominant female presented to clinic with L shoulder pain along with weakness for overhead activities. Pain started from a fall September who landed on her deltoid region. Patient was not able to raise her arms above her head for the following few weeks with significant pain. She states it is not too painful now, and range of motion is slowly improving. There is no numbness or tingling associated with it. she describes she has good or bad days but does not know why. She went to [place] country skiing recently and that actually made her feel better. She has tried ibuprofen and mainly just ignoring it and doing maneuvers where she does not have to manipulate her L shoulder much. Pt had a x-ray on 12/14/19 and was dx with Subacromial bursitis and impingement syndrome of the shoulder with supraspinatus tendinitis. On the other hand, pt had a very active lifestyle before the injury who does 20-30 push ups a day and mountain biking couple times a month. Prior Treatments and Tests x-ray 12/14/19 1. High riding appearance of the humeral head, which can be indicative of rotator cuff pathology. Treatment Goals Patient/Caregiver Goals 1. To be able to do push ups 20/30 times a day 2. mountain bike multiple times a month 3. peggy/doff her clothes without pain Prior Functional Status Baseline Function- ADL's Independent Baseline Function- Mobility Independent Current Functional Impairments (Reported) Functional Limitations- ADL's modified independent with primarily using her R LE to assist in peggy/doff clothes. Functional Limitations- Recreation/ unable to do push up and Hobbies returne to mountain biking. PT-OP-C Subjective Start: 01/13/20 10:08 Freq: Status: Active Protocol: Document 01/25/20 13:49 EG (Rec: 01/25/20 14:36 EG [id number]) OP-PT Subjective Patient Comments Patient Comments Patient reported that she was mountain biking this past weekend and she did not have any increase in pain in shoulder afterwards. Exercises at home tightens her up again but when she stretches her shoulder, it help. She feels that the pain is worse when moving her shoulder in circular directions or when putting her clothes on in the morning when the shoulder muscles are still tight. Patient Reported Progress Improving PT-OP-E Functional Tests Start: 01/13/20 10:08 Freq: Status: Active Protocol: Document 01/12/20 16:50 HH (Rec: 01/13/20 13:06 HH [email or web address]) Functional Tests Apley's Scratch Test Action 2- Left top of R trap Action 2- Right top of L scap spine Action 3- Left inferior boarder of R scap Action 3- Right medial boarder of L scap PT-OP-F Manual Assessment Start: 01/13/20 10:08 Freq: Status: Active Protocol: Document 01/12/20 16:50 HH (Rec: 01/13/20 13:05 HH [email or web address]) Manual Assessments Soft Tissue Assessment Soft Tissue Mobility Assessment Tenderness to pressure at supraspinatus and infraspinatus insertion. Joint Mobility Assessment Joint Mobility Assessment mod anterior GH translation during ER/ IR and extension compared to R PT-OP-K Range of Motion Start: 01/13/20 10:08 Freq: Status: Active Protocol: Document 01/12/20 16:50 HH (Rec: 01/13/20 13:05 HH [email or web address]) Shoulder Goniometric Range of Motion Shoulder Right Active Shoulder ROM WFL Yes Testing Position Standing Flexion 175 Extension 60 Abduction 170 External Rotation at 90 degrees 90 Abduction Internal Rotation 90 Left Active Shoulder ROM WFL Yes Testing Position Standing Flexion 165 Extension 55 Abduction 160 External Rotation at 90 degrees 88 Abduction Internal Rotation 72 Shoulder ROM Limitations Shoulder ROM Limitations Soft Tissue Tightness,Pain Comments radiating L shoulder pain to bicep during internal rotation at endrange PT-OP-L Special Tests Start: 01/13/20 10:08 Freq: Status: Active Protocol: Document 01/12/20 16:50 HH (Rec: 01/13/20 13:05 HH [email or web address]) Special Tests Shoulder Special Tests elbow lift Test Results +ve L Comments instruction : L hand on right shoulder and lift elbow pt unable to perform lift off. Lift-Off Rotator Cuff Test Results -ve Yergason's Biceps Test Results -ve Speed's Biceps Test Results -ve Empty Can Test Results +ve L Comments unable to point thumb down to floor d/t pain Belly Press Test Results -ve B AC Joint Compression Test Results +ve L side PT-OP-M Strength Start: 01/13/20 10:08 Freq: Status: Active Protocol: Document 01/12/20 16:50 HH (Rec: 01/13/20 13:05 [email or web address]) Shoulder Strength Shoulder Manual Muscle Testing Right Flexion 5 Normal Extension 5 Normal Abduction (C5) 5 Normal Adduction 5 Normal External Rotation 5 Normal Internal Rotation 5 Normal Reason Not Measured Pain Left Flexion 4 Good Extension 4+ Good+ Abduction (C5) 4- Good- External Rotation 4- Good- Internal Rotation 4+ Good+ Reason Not Measured Pain Comments L radiating shoulder pain reproduced with resisted L ER with elbow at 90 degrees. PT-OP-Q Treatments Start: 01/13/20 10:08 Freq: Status: Active Protocol: Document 01/25/20 13:49 EG (Rec: 01/25/20 14:36 EG [id number]) Cardio Equipment Upper Body Ergometer (UBE) Duration (Minutes) 5 RPM 60 Seat Position 13 Other 2.5 min fwd/bkwd Therapeutic Exercises Supine Exercises Serratus Anterior Punches Supine Exercise Name Wall Punches Side bilateral Resistance 5# Equipment Used 5# dumbbells Reps/Minutes 10x each side Sidelying Exercises sleeper stretch Side left Reps/Minutes 2 mins Comments for HEP Standing Exercises Weighted ball stabilization on wall Standing Exercise Name Weighted ball stabilization on wall (CCW, CW, up/down) Side left Equipment Used 3.3# Reps/Minutes 10 circles each direction Y on wall Standing Exercise Name lower trap strengthening - y on wall Side bilateral Reps/Minutes 10x Comments slide forearms up // to wall, once elbows extended, press arms back in Y scap retraction Standing Exercise Name Theraband rows Side bilateral Resistance L2 Equipment Used TB Reps/Minutes 12x Comments Patient reported as easy Shoulder Extension Standing Exercise Name Lat pulldown/shoulder extension with TB Side bilateral Equipment Used L2 theraband Reps/Minutes 15x Shoulder ER Standing Exercise Name roll at elbow Side bilateral Resistance L2 exercise band Reps/Minutes 2x12 Comments increased burning in back of shoulder - HEP now using L2 TB Manual Therapy Treatment Soft Tissue Mobilization 1 Body Location anterior left shoulder, pec major MT junction, infraspinatus, supraspinatus Mobilization Type Cross-Friction Intensity/Depth Superficial Body Position Supine Joint Mobilizations GH joint post glide Joint Axial direction Direction posterior glide Grade II Body Position Supine Comments arm at 90 abd moving in to IR 1 Joint Glenohumeral joint Direction post and inferior Grade II Body Position Supine Manual Traction GH distraction Details elbow flexed Body Position Supine Comments axial distraction Other Other Manual Treatments Perturbation of L shoulder as it was flexed overhead while patient was supine. PT-OP-R Modalities Start: 01/13/20 10:08 Freq: Status: Active Protocol: Document 01/14/20 13:00 DLM (Rec: 01/15/20 17:40 DLM [id number]) Hot Pack/Cold Pack Treatment Cold Pack Location left shoulder Patient Position Supine Treatment Duration (minutes) 10 Patient Tolerance Good Comments at end of treatment PT-OP-T Assessment and Plan Start: 01/13/20 10:08 Freq: Status: Active Protocol: Document 01/25/20 13:49 EG (Rec: 01/25/20 15:00 EG [email or web address]) Physical Therapy Assessment Assessment Summary Assessment Patient tolerated treatment well today. She did not have any increase in pain during exercises but did feel more scapular muscle tension with increased resistance for Shoulder ER. It does seem that patient does have decreased symptoms of pain when warmed up and can tolerate increased ROM without pain. IR should still be worked on as well as dynamic movements with the shoulder. Possibly introduce PNF to help with stabilization , ROM, and strength of the L shoulder. Physical Therapy Plan Frequency and Duration Frequency of Treatment 2x/Week Duration of Treatment 8 weeks Plan of Care Start Date 01/13/20 Plan of Care End Date 03/13/20 Next Visit Focus/Plan Next Note Type Treatment Note Next Visit Plan Introduce PNF. IR/ER mobility scap stabilization t/s mobility I, Yessica Okeefe, DPT, supervised all treatment performed by, and agreed with the plan of care, as performed by Haley Sierra, JEAN CARLOS.
--- NOTE | 2020-01-27 15:15 | PT.OTN ---
Current Diagnoses Other shoulder lesions, unspecified shoulder (01/27/20) Physical Therapy Treatment Note PT-OP-A Visit Information Start: 01/13/20 10:08 Freq: Status: Active Protocol: Document 01/27/20 14:37 KS (Rec: 01/27/20 16:29 KS [email or web address]) Out-Patient Physical Therapy Visit Information Visit Information Visit Type Treatment Note Visit Start Time 14:37 Visit Stop Time 15:15 Total Visit Minutes 38 Visit Number 6/9 Number of [employer] Visits 1 PT-OP-B Current Condition Start: 01/13/20 10:08 Freq: Status: Active Protocol: Document 01/12/20 16:50 HH (Rec: 01/13/20 10:21 HH [email or web address]) Current Condition History of Current Condition Onset Date Sep, 2019 Current Complaints L shoulder pain, weakness and difficulty with overhead movements History of Current Condition Pt is a44 yo R- handed dominant female presented to clinic with L shoulder pain along with weakness for overhead activities. Pain started from a fall September who landed on her deltoid region. Patient was not able to raise her arms above her head for the following few weeks with significant pain. She states it is not too painful now, and range of motion is slowly improving. There is no numbness or tingling associated with it. she describes she has good or bad days but does not know why. She went to [employer] country skiing recently and that actually made her feel better. She has tried ibuprofen and mainly just ignoring it and doing maneuvers where she does not have to manipulate her L shoulder much. Pt had a x-ray on 12/14/19 and was dx with Subacromial bursitis and impingement syndrome of the shoulder with supraspinatus tendinitis. On the other hand, pt had a very active lifestyle before the injury who does 20-30 push ups a day and mountain biking couple times a month. Prior Treatments and Tests x-ray 12/14/19 1. High riding appearance of the humeral head, which can be indicative of rotator cuff pathology. Treatment Goals Patient/Caregiver Goals 1. To be able to do push ups 20/30 times a day 2. mountain bike multiple times a month 3. peggy/doff her clothes without pain Prior Functional Status Baseline Function- ADL's Independent Baseline Function- Mobility Independent Current Functional Impairments (Reported) Functional Limitations- ADL's modified independent with primarily using her R LE to assist in peggy/doff clothes. Functional Limitations- Recreation/ unable to do push up and Hobbies returne to mountain biking. PT-OP-C Subjective Start: 01/13/20 10:08 Freq: Status: Active Protocol: Document 01/27/20 14:37 KS (Rec: 01/27/20 16:29 KS [email or web address]) OP-PT Subjective Patient Comments Patient Comments Pt arrived 7 min late to treatment. Pt states that she is still experiencing stiffness and lack of ROM in L shoulder. She reports that stretching feels the most helpful at this point. Patient Reported Progress Improving PT-OP-E Functional Tests Start: 01/13/20 10:08 Freq: Status: Active Protocol: Document 01/12/20 16:50 HH (Rec: 01/13/20 13:06 HH [email or web address]) Functional Tests Apley's Scratch Test Action 2- Left top of R trap Action 2- Right top of L scap spine Action 3- Left inferior boarder of R scap Action 3- Right medial boarder of L scap PT-OP-F Manual Assessment Start: 01/13/20 10:08 Freq: Status: Active Protocol: Document 01/12/20 16:50 HH (Rec: 01/13/20 13:05 HH [email or web address]) Manual Assessments Soft Tissue Assessment Soft Tissue Mobility Assessment Tenderness to pressure at supraspinatus and infraspinatus insertion. Joint Mobility Assessment Joint Mobility Assessment mod anterior GH translation during ER/ IR and extension compared to R PT-OP-K Range of Motion Start: 01/13/20 10:08 Freq: Status: Active Protocol: Document 01/12/20 16:50 HH (Rec: 01/13/20 13:05 HH [email or web address]) Shoulder Goniometric Range of Motion Shoulder Right Active Shoulder ROM WFL Yes Testing Position Standing Flexion 175 Extension 60 Abduction 170 External Rotation at 90 degrees 90 Abduction Internal Rotation 90 Left Active Shoulder ROM WFL Yes Testing Position Standing Flexion 165 Extension 55 Abduction 160 External Rotation at 90 degrees 88 Abduction Internal Rotation 72 Shoulder ROM Limitations Shoulder ROM Limitations Soft Tissue Tightness,Pain Comments radiating L shoulder pain to bicep during internal rotation at endrange PT-OP-L Special Tests Start: 01/13/20 10:08 Freq: Status: Active Protocol: Document 01/12/20 16:50 HH (Rec: 01/13/20 13:05 [email or web address]) Special Tests Shoulder Special Tests elbow lift Test Results +ve L Comments instruction : L hand on right shoulder and lift elbow pt unable to perform lift off. Lift-Off Rotator Cuff Test Results -ve Yergason's Biceps Test Results -ve Speed's Biceps Test Results -ve Empty Can Test Results +ve L Comments unable to point thumb down to floor d/t pain Belly Press Test Results -ve B AC Joint Compression Test Results +ve L side PT-OP-M Strength Start: 01/13/20 10:08 Freq: Status: Active Protocol: Document 01/12/20 16:50 HH (Rec: 01/13/20 13:05 [email or web address]) Shoulder Strength Shoulder Manual Muscle Testing Right Flexion 5 Normal Extension 5 Normal Abduction (C5) 5 Normal Adduction 5 Normal External Rotation 5 Normal Internal Rotation 5 Normal Reason Not Measured Pain Left Flexion 4 Good Extension 4+ Good+ Abduction (C5) 4- Good- External Rotation 4- Good- Internal Rotation 4+ Good+ Reason Not Measured Pain Comments L radiating shoulder pain reproduced with resisted L ER with elbow at 90 degrees. PT-OP-Q Treatments Start: 01/13/20 10:08 Freq: Status: Active Protocol: Document 01/27/20 14:37 KS (Rec: 01/27/20 16:29 KS [email or web address]) Cardio Equipment Upper Body Ergometer (UBE) Duration (Minutes) 5 RPM 60 Seat Position 13 Other 2.5 min fwd/bkwd Therapeutic Exercises Supine Exercises PROM L shoulder Supine Exercise Name PROM L shoulder Side left Comments focus on IR Serratus Anterior Punches Supine Exercise Name Supine SA punches Side bilateral Resistance 2# Equipment Used 2# dumbbells Reps/Minutes 2x10 Standing Exercises IR/ER walkouts Standing Exercise Name IR/ER walkouts Side left Resistance l3 band Reps/Minutes 5 laps Comments cues for aligned elbow/wrist Weighted ball stabilization on wall Standing Exercise Name Weighted ball stabilization on wall (CCW, CW, up/down) Side left Equipment Used 3.3# Reps/Minutes 10 circles each direction scap retraction Standing Exercise Name Theraband rows Side bilateral Resistance L2 Equipment Used TB Reps/Minutes 12x Comments Patient reported as easy Manual Therapy Treatment Soft Tissue Mobilization 1 Body Location anterior left shoulder, infraspinatus, supraspinatus Mobilization Type Cross-Friction Intensity/Depth Superficial Body Position Supine Joint Mobilizations 1 Joint Glenohumeral joint Direction post and inferior Grade II Body Position Supine Neuro Re-Education Treatment Other Activities Scapular PNF Details Scapular PNF Comments resisted PNF ant elevation, post depression PT-OP-R Modalities Start: 01/13/20 10:08 Freq: Status: Active Protocol: Document 01/14/20 13:00 DLM (Rec: 01/15/20 17:40 DLM [email or web address]) Hot Pack/Cold Pack Treatment Cold Pack Location left shoulder Patient Position Supine Treatment Duration (minutes) 10 Patient Tolerance Good Comments at end of treatment PT-OP-T Assessment and Plan Start: 01/13/20 10:08 Freq: Status: Active Protocol: Document 01/27/20 14:37 KS (Rec: 01/27/20 16:29 KS [email or web address]) Physical Therapy Assessment Rehab Potential Rehabilitation Potential Excellent Evaluation Complexity Number of Personal Factors/Comorbidities 0 Number of Body Systems Impaired 1-2 Clinical Presentation at Evaluation Stable Impairments Impairments Functional Activities, Functional Mobility,Pain, Posture,ROM,Soft Tissue Mobility,Strength Goals strength Impairment Pt has 4- to 4+ MMT strength for L shoulder Residential Goal (LTG) Pt will improve her L shoulder strength to 5/5 without any disomfort LTG Duration 8 weeks shoulder IR Impairment lack of IR to peggy/doff clothes Short Term Goal (STG) Pt will increase her IR 10 degrees to improve mobility to wear clothes. STG Duration 4 weeks Paper Rewinder Goal (LTG) Pt will be able to peggy/doff clothes without any shoulder discomfort. LTG Duration 8 weeks return to sports Impairment unable to do push up/ mountain biking Short Term Goal (STG) Pt will be able to do 10 push ups a day without discomfort STG Duration 4 weeks Paper Rewinder Goal (LTG) Pt will be able to do 20-30 push ups a day without shoulder discomfort and return to mountain biking twice a month. LTG Duration 8 weeks Quickdash Impairment pt scores 22.72 Residential Goal (LTG) Pt will score below 10 on quickdash to improve her quality of life. LTG Duration 8 weeks Progress Towards Goals Progress Towards Goals Progressing Toward Goals Assessment Summary Assessment Pt tolerated shoulder strengthening and stabilization exercises well today and had good awareness of proper technique/scapular retraction. Pt verbalized increased stiffness after performing exercises, but responded well/verbalized relief from scapular PNF assisted and resisted and GH joint mobs post and inf. Pts flexion and abduction ROM increased secondary to GH jt mobs. Physical Therapy Plan Frequency and Duration Frequency of Treatment 2x/Week Duration of Treatment 8 weeks Plan of Care Start Date 01/13/20 Plan of Care End Date 03/13/20 Therapeutic Interventions Therapeutic Interventions Home Exercise Program,Joint Mobilizations,Manual Therapy, Neuromuscular Re-education, Patient/Caregiver Education, Self-Care/Home Management,Soft Tissue Mobilization,Taping, Therapeutic Activities, Therapeutic Exercises Modalities Cold Pack/Ice Massage,Electric Stimulation,Hot Packs, Infrared Therapy,Iontophoresis ,Ultrasound Next Visit Focus/Plan Next Note Type Treatment Note Next Visit Plan Continue PNF. IR/ER mobility scap stabilization t/s mobility
--- NOTE | 2020-02-02 15:17 | PT.OTN ---
Current Diagnoses Other shoulder lesions, unspecified shoulder (02/02/20) Physical Therapy Treatment Note PT-OP-A Visit Information Start: 01/13/20 10:08 Freq: Status: Active Protocol: Document 02/02/20 13:05 EG (Rec: 02/02/20 13:48 EG [id number]) Out-Patient Physical Therapy Visit Information Visit Information Visit Type Treatment Note Visit Start Time 13:05 Visit Stop Time 13:45 Total Visit Minutes 40 Visit Number 7/9 Number of [employer] Visits 0 PT-OP-B Current Condition Start: 01/13/20 10:08 Freq: Status: Active Protocol: Document 01/12/20 16:50 HH (Rec: 01/13/20 10:21 HH [email or web address]) Current Condition History of Current Condition Onset Date Sep, 2019 Current Complaints L shoulder pain, weakness and difficulty with overhead movements History of Current Condition Pt is a44 yo R- handed dominant female presented to clinic with L shoulder pain along with weakness for overhead activities. Pain started from a fall September who landed on her deltoid region. Patient was not able to raise her arms above her head for the following few weeks with significant pain. She states it is not too painful now, and range of motion is slowly improving. There is no numbness or tingling associated with it. she describes she has good or bad days but does not know why. She went to [employer] country skiing recently and that actually made her feel better. She has tried ibuprofen and mainly just ignoring it and doing maneuvers where she does not have to manipulate her L shoulder much. Pt had a x-ray on 12/14/19 and was dx with Subacromial bursitis and impingement syndrome of the shoulder with supraspinatus tendinitis. On the other hand, pt had a very active lifestyle before the injury who does 20-30 push ups a day and mountain biking couple times a month. Prior Treatments and Tests x-ray 12/14/19 1. High riding appearance of the humeral head, which can be indicative of rotator cuff pathology. Treatment Goals Patient/Caregiver Goals 1. To be able to do push ups 20/30 times a day 2. mountain bike multiple times a month 3. peggy/doff her clothes without pain Prior Functional Status Baseline Function- ADL's Independent Baseline Function- Mobility Independent Current Functional Impairments (Reported) Functional Limitations- ADL's modified independent with primarily using her R LE to assist in peggy/doff clothes. Functional Limitations- Recreation/ unable to do push up and Hobbies returne to mountain biking. PT-OP-C Subjective Start: 01/13/20 10:08 Freq: Status: Active Protocol: Document 02/02/20 13:05 EG (Rec: 02/02/20 13:48 EG [id number]) OP-PT Subjective Patient Comments Patient Comments Patient reports that she feels a little better and has been doing more things at home. She was doing planks and push-ups at home and they seem to be going okay but the shoulder hurts afterwards. She thinks that because she is doing exercises here that tend to bother her shoulder, it is okay to do this at home. She thinks that her shoulder feels better after it is warmed up a little. Patient Reported Progress Same PT-OP-E Functional Tests Start: 01/13/20 10:08 Freq: Status: Active Protocol: Document 01/12/20 16:50 HH (Rec: 01/13/20 13:06 HH [email or web address]) Functional Tests Apley's Scratch Test Action 2- Left top of R trap Action 2- Right top of L scap spine Action 3- Left inferior boarder of R scap Action 3- Right medial boarder of L scap PT-OP-F Manual Assessment Start: 01/13/20 10:08 Freq: Status: Active Protocol: Document 01/12/20 16:50 HH (Rec: 01/13/20 13:05 HH [email or web address]) Manual Assessments Soft Tissue Assessment Soft Tissue Mobility Assessment Tenderness to pressure at supraspinatus and infraspinatus insertion. Joint Mobility Assessment Joint Mobility Assessment mod anterior GH translation during ER/ IR and extension compared to R PT-OP-K Range of Motion Start: 01/13/20 10:08 Freq: Status: Active Protocol: Document 01/12/20 16:50 HH (Rec: 01/13/20 13:05 HH [email or web address]) Shoulder Goniometric Range of Motion Shoulder Right Active Shoulder ROM WFL Yes Testing Position Standing Flexion 175 Extension 60 Abduction 170 External Rotation at 90 degrees 90 Abduction Internal Rotation 90 Left Active Shoulder ROM WFL Yes Testing Position Standing Flexion 165 Extension 55 Abduction 160 External Rotation at 90 degrees 88 Abduction Internal Rotation 72 Shoulder ROM Limitations Shoulder ROM Limitations Soft Tissue Tightness,Pain Comments radiating L shoulder pain to bicep during internal rotation at endrange PT-OP-L Special Tests Start: 01/13/20 10:08 Freq: Status: Active Protocol: Document 01/12/20 16:50 HH (Rec: 01/13/20 13:05 HH [email or web address]) Special Tests Shoulder Special Tests elbow lift Test Results +ve L Comments instruction : L hand on right shoulder and lift elbow pt unable to perform lift off. Lift-Off Rotator Cuff Test Results -ve Yergason's Biceps Test Results -ve Speed's Biceps Test Results -ve Empty Can Test Results +ve L Comments unable to point thumb down to floor d/t pain Belly Press Test Results -ve B AC Joint Compression Test Results +ve L side PT-OP-M Strength Start: 01/13/20 10:08 Freq: Status: Active Protocol: Document 01/12/20 16:50 HH (Rec: 01/13/20 13:05 [email or web address]) Shoulder Strength Shoulder Manual Muscle Testing Right Flexion 5 Normal Extension 5 Normal Abduction (C5) 5 Normal Adduction 5 Normal External Rotation 5 Normal Internal Rotation 5 Normal Reason Not Measured Pain Left Flexion 4 Good Extension 4+ Good+ Abduction (C5) 4- Good- External Rotation 4- Good- Internal Rotation 4+ Good+ Reason Not Measured Pain Comments L radiating shoulder pain reproduced with resisted L ER with elbow at 90 degrees. PT-OP-Q Treatments Start: 01/13/20 10:08 Freq: Status: Active Protocol: Document 02/02/20 13:05 EG (Rec: 02/02/20 13:48 EG [id number]) Cardio Equipment Upper Body Ergometer (UBE) Duration (Minutes) 6 Other 3 min fwd/bkwd Therapeutic Exercises Supine Exercises Thoracic mobilization with foam roller Supine Exercise Name Thoracic mobilization with foam roller Equipment Used short foam roller Reps/Minutes 30 sec Comments no increase of pain in shoulder foam roll chest stretch/flexion/abduction/wall angels Supine Exercise Name Chest Stretch/Flexion/ Abduction/goal post Side bilateral Equipment Used 1/2 foam roller Reps/Minutes 10x each exercise Comments Pain with abduction Sitting Exercises Eccentric Biceps Curl Sitting Exercise Name Eccentric Biceps Curl Side bilateral Equipment Used 5# dumbbell Reps/Minutes 10x Standing Exercises Pec stretch on wall Standing Exercise Name Pec Stretch on wall Reps/Minutes 30 sec Comments given for HEP TB Chest Press Standing Exercise Name TB Chest Press Reps/Minutes 15x Comments hold press at the end Standing Push up on wall Standing Exercise Name Standing push up on wall Reps/Minutes 10x Comments done with elbows in and elbows out - pain with elbows out Manual Therapy Treatment Soft Tissue Mobilization 1 Body Location Pec major, anterior left shoulder,infraspinatus, supraspinatus Mobilization Type Cross-Friction Intensity/Depth Superficial Body Position Supine Joint Mobilizations 1 Joint Glenohumeral joint Direction post and inferior Grade II Body Position Supine Comments Inferior glide with IR PT-OP-R Modalities Start: 01/13/20 10:08 Freq: Status: Active Protocol: Document 01/14/20 13:00 DLM (Rec: 01/15/20 17:40 DLM [id number]) Hot Pack/Cold Pack Treatment Cold Pack Location left shoulder Patient Position Supine Treatment Duration (minutes) 10 Patient Tolerance Good Comments at end of treatment PT-OP-T Assessment and Plan Start: 01/13/20 10:08 Freq: Status: Active Protocol: Document 02/02/20 13:05 EG (Rec: 02/02/20 15:14 EG [email or web address]) Physical Therapy Assessment Assessment Summary Assessment Patient tolerated treatment well today. She is starting to do planks and push ups at home and feels that the pain occurs during the end of the movement. Patient does have increased tenderness in the pectoralis major as well as with mid range abduction. Important to continue to work on stretching of the pectoralis muscle, and work on shoulder stabilization with pushing positions. PNF and movements in multiple directions should also be initiated/continued. Physical Therapy Plan Frequency and Duration Frequency of Treatment 2x/Week Duration of Treatment 8 weeks Plan of Care Start Date 01/13/20 Plan of Care End Date 03/13/20 Next Visit Focus/Plan Next Note Type Treatment Note Next Visit Plan Continue PNF. IR/ER mobility scap stabilization t/s mobility I, Yessica Okeefe DPT, supervised all treatment performed by, and agreed with the plan of care, as performed by Haley Sierra, SPT.
--- NOTE | 2020-02-04 16:11 | PT.OTN ---
Current Diagnoses Other shoulder lesions, unspecified shoulder (02/04/20) Physical Therapy Treatment Note PT-OP-A Visit Information Start: 01/13/20 10:08 Freq: Status: Active Protocol: Document 02/04/20 09:05 EG (Rec: 02/04/20 09:52 EG [id number]) Out-Patient Physical Therapy Visit Information Visit Information Visit Type Treatment Note Visit Start Time 09:05 Visit Stop Time 09:45 Total Visit Minutes 40 Visit Number 8/9 Number of DIRECTOR OF ACQUISITION MARKETING Visits 0 PT-OP-B Current Condition Start: 01/13/20 10:08 Freq: Status: Active Protocol: Document 01/12/20 16:50 HH (Rec: 01/13/20 10:21 HH [email or web address]) Current Condition History of Current Condition Onset Date Sep, 2019 Current Complaints L shoulder pain, weakness and difficulty with overhead movements History of Current Condition Pt is a44 yo R- handed dominant female presented to clinic with L shoulder pain along with weakness for overhead activities. Pain started from a fall September who landed on her deltoid region. Patient was not able to raise her arms above her head for the following few weeks with significant pain. She states it is not too painful now, and range of motion is slowly improving. There is no numbness or tingling associated with it. she describes she has good or bad days but does not know why. She went to [employer] [place] recently and that actually made her feel better. She has tried ibuprofen and mainly just ignoring it and doing maneuvers where she does not have to manipulate her L shoulder much. Pt had a x-ray on 12/14/19 and was dx with Subacromial bursitis and impingement syndrome of the shoulder with supraspinatus tendinitis. On the other hand, pt had a very active lifestyle before the injury who does 20-30 push ups a day and mountain biking couple times a month. Prior Treatments and Tests x-ray 12/14/19 1. High riding appearance of the humeral head, which can be indicative of rotator cuff pathology. Treatment Goals Patient/Caregiver Goals 1. To be able to do push ups 20/30 times a day 2. mountain bike multiple times a month 3. peggy/doff her clothes without pain Prior Functional Status Baseline Function- ADL's Independent Baseline Function- Mobility Independent Current Functional Impairments (Reported) Functional Limitations- ADL's modified independent with primarily using her R LE to assist in peggy/doff clothes. Functional Limitations- Recreation/ unable to do push up and Hobbies returne to mountain biking. PT-OP-C Subjective Start: 01/13/20 10:08 Freq: Status: Active Protocol: Document 02/04/20 09:05 EG (Rec: 02/04/20 09:52 EG [id number]) OP-PT Subjective Patient Comments Patient Comments Patient reports that her shoulder has been feeling better. She is not getting the lingering pain that she usually gets. She can still feel the shoulder when she puts her jacket on but it isn' t bad. She had a busy day yesterday so did not do her planks or push-ups. Patient Reported Progress Improving PT-OP-E Functional Tests Start: 01/13/20 10:08 Freq: Status: Active Protocol: Document 01/12/20 16:50 HH (Rec: 01/13/20 13:06 HH [email or web address]) Functional Tests Apley's Scratch Test Action 2- Left top of R trap Action 2- Right top of L scap spine Action 3- Left inferior boarder of R scap Action 3- Right medial boarder of L scap PT-OP-F Manual Assessment Start: 01/13/20 10:08 Freq: Status: Active Protocol: Document 01/12/20 16:50 HH (Rec: 01/13/20 13:05 HH [email or web address]) Manual Assessments Soft Tissue Assessment Soft Tissue Mobility Assessment Tenderness to pressure at supraspinatus and infraspinatus insertion. Joint Mobility Assessment Joint Mobility Assessment mod anterior GH translation during ER/ IR and extension compared to R PT-OP-K Range of Motion Start: 01/13/20 10:08 Freq: Status: Active Protocol: Document 01/12/20 16:50 HH (Rec: 01/13/20 13:05 HH [email or web address]) Shoulder Goniometric Range of Motion Shoulder Right Active Shoulder ROM WFL Yes Testing Position Standing Flexion 175 Extension 60 Abduction 170 External Rotation at 90 degrees 90 Abduction Internal Rotation 90 Left Active Shoulder ROM WFL Yes Testing Position Standing Flexion 165 Extension 55 Abduction 160 External Rotation at 90 degrees 88 Abduction Internal Rotation 72 Shoulder ROM Limitations Shoulder ROM Limitations Soft Tissue Tightness,Pain Comments radiating L shoulder pain to bicep during internal rotation at endrange PT-OP-L Special Tests Start: 01/13/20 10:08 Freq: Status: Active Protocol: Document 01/12/20 16:50 HH (Rec: 01/13/20 13:05 HH [email or web address]) Special Tests Shoulder Special Tests elbow lift Test Results +ve L Comments instruction : L hand on right shoulder and lift elbow pt unable to perform lift off. Lift-Off Rotator Cuff Test Results -ve Yergason's Biceps Test Results -ve Speed's Biceps Test Results -ve Empty Can Test Results +ve L Comments unable to point thumb down to floor d/t pain Belly Press Test Results -ve B AC Joint Compression Test Results +ve L side PT-OP-M Strength Start: 01/13/20 10:08 Freq: Status: Active Protocol: Document 01/12/20 16:50 HH (Rec: 01/13/20 13:05 HH [email or web address]) Shoulder Strength Shoulder Manual Muscle Testing Right Flexion 5 Normal Extension 5 Normal Abduction (C5) 5 Normal Adduction 5 Normal External Rotation 5 Normal Internal Rotation 5 Normal Reason Not Measured Pain Left Flexion 4 Good Extension 4+ Good+ Abduction (C5) 4- Good- External Rotation 4- Good- Internal Rotation 4+ Good+ Reason Not Measured Pain Comments L radiating shoulder pain reproduced with resisted L ER with elbow at 90 degrees. PT-OP-Q Treatments Start: 01/13/20 10:08 Freq: Status: Active Protocol: Document 02/04/20 09:05 EG (Rec: 02/04/20 09:52 EG [id number]) Cardio Equipment Upper Body Ergometer (UBE) Duration (Minutes) 6 Seat Position 12 Other 3 min fwd/bkwd Gym Equipment Therapeutic Ball I,Y,T Exercise Details I,Y,T Ball Size/Color 65 in/red ball Body Position Prone Reps/Duration 8 rounds Comments no pain by last set Therapeutic Exercises Supine Exercises foam roll chest stretch/flexion/abduction/wall angels Supine Exercise Name Chest Stretch/Flexion/ Adduction Side bilateral Equipment Used full foam roller Reps/Minutes 10x each exercise; hold stretch for 1 min Comments did flexion while moving in to IR as well Prone Exercises Prone lift push up Prone Exercise Name Push-up from lying flat down on belly Reps/Minutes 10x Comments push up from ground on toes, lower knees and then lower Standing Exercises PNF D1 Extension and D1 flexion Standing Exercise Name Standing D2 flex/ext Side bilateral Resistance L2 Equipment Used TB Reps/Minutes 8x each exercise Comments given as HEP Other Exercises Plank/Pushup Other Exercise Name Plank Reps/Minutes 1 min Comments no pain in push-up Manual Therapy Treatment Soft Tissue Mobilization 1 Body Location Pec major, anterior left shoulder,infraspinatus, supraspinatus Mobilization Type Cross-Friction Intensity/Depth Superficial Body Position Supine Joint Mobilizations 1 Joint Glenohumeral joint Direction post and inferior Grade II Body Position Supine Comments Inferior glide with IR PT-OP-R Modalities Start: 01/13/20 10:08 Freq: Status: Active Protocol: Document 01/14/20 13:00 DLM (Rec: 01/15/20 17:40 DLM [id number]) Hot Pack/Cold Pack Treatment Cold Pack Location left shoulder Patient Position Supine Treatment Duration (minutes) 10 Patient Tolerance Good Comments at end of treatment PT-OP-T Assessment and Plan Start: 01/13/20 10:08 Freq: Status: Active Protocol: Document 02/04/20 09:05 EG (Rec: 02/04/20 09:52 EG [id number]) Physical Therapy Assessment Assessment Summary Assessment Patient tolerated treatment well this morning. She has been having decreased pain overall with an increase in function. She does want to continue with her push-ups so a modification was given today that will help with decreasing the load on the shoulder while performing this . She was also given new TB exercises focused on dynamic lateral movements. She should be ready for discharge next appontment and ROM, strength, and goals should be reassessed . Physical Therapy Plan Next Visit Focus/Plan Next Note Type Discharge Summary Next Visit Plan Patient will be discharging next appointment. Reassess goals and ROM/Strength Yessica Mark DPT, supervised all treatment performed by, and agreed with the plan of care, as performed by JEAN CARLOS Goldman.
--- NOTE | 2020-02-08 15:06 | PT.OTN ---
Current Diagnoses Other shoulder lesions, unspecified shoulder (02/08/20) Physical Therapy Treatment Note PT-OP-A Visit Information Start: 01/13/20 10:08 Freq: Status: Active Protocol: Document 02/08/20 13:47 HH (Rec: 02/08/20 15:06 HH [email or web address]) Out-Patient Physical Therapy Visit Information Visit Information Visit Type Treatment Note Visit Start Time 13:47 Visit Stop Time 14:30 Total Visit Minutes 43 Visit Number 9/9 Number of MEDICAL SCIENCE LIAISON Visits 0 PT-OP-B Current Condition Start: 01/13/20 10:08 Freq: Status: Active Protocol: Document 01/12/20 16:50 HH (Rec: 01/13/20 10:21 HH [email or web address]) Current Condition History of Current Condition Onset Date Sep, 2019 Current Complaints L shoulder pain, weakness and difficulty with overhead movements History of Current Condition Pt is a44 yo R- handed dominant female presented to clinic with L shoulder pain along with weakness for overhead activities. Pain started from a fall September who landed on her deltoid region. Patient was not able to raise her arms above her head for the following few weeks with significant pain. She states it is not too painful now, and range of motion is slowly improving. There is no numbness or tingling associated with it. she describes she has good or bad days but does not know why. She went to [place] country skiing recently and that actually made her feel better. She has tried ibuprofen and mainly just ignoring it and doing maneuvers where she does not have to manipulate her L shoulder much. Pt had a x-ray on 12/14/19 and was dx with Subacromial bursitis and impingement syndrome of the shoulder with supraspinatus tendinitis. On the other hand, pt had a very active lifestyle before the injury who does 20-30 push ups a day and mountain biking couple times a month. Prior Treatments and Tests x-ray 12/14/19 1. High riding appearance of the humeral head, which can be indicative of rotator cuff pathology. Treatment Goals Patient/Caregiver Goals 1. To be able to do push ups 20/30 times a day 2. mountain bike multiple times a month 3. peggy/doff her clothes without pain Prior Functional Status Baseline Function- ADL's Independent Baseline Function- Mobility Independent Current Functional Impairments (Reported) Functional Limitations- ADL's modified independent with primarily using her R LE to assist in peggy/doff clothes. Functional Limitations- Recreation/ unable to do push up and Hobbies returne to mountain biking. PT-OP-C Subjective Start: 01/13/20 10:08 Freq: Status: Active Protocol: Document 02/08/20 13:47 HH (Rec: 02/08/20 15:06 HH [email or web address]) OP-PT Subjective Patient Comments Patient Comments Aga doing better but it still gets sore from time to time. I do notice that my range of motion tends to get better after warm up. I think im ready to be d/c. Patient Reported Progress Improving PT-OP-E Functional Tests Start: 01/13/20 10:08 Freq: Status: Active Protocol: Document 01/12/20 16:50 HH (Rec: 01/13/20 13:06 [email or web address]) Functional Tests Apley's Scratch Test Action 2- Left top of R trap Action 2- Right top of L scap spine Action 3- Left inferior boarder of R scap Action 3- Right medial boarder of L scap PT-OP-F Manual Assessment Start: 01/13/20 10:08 Freq: Status: Active Protocol: Document 01/12/20 16:50 HH (Rec: 01/13/20 13:05 [email or web address]) Manual Assessments Soft Tissue Assessment Soft Tissue Mobility Assessment Tenderness to pressure at supraspinatus and infraspinatus insertion. Joint Mobility Assessment Joint Mobility Assessment mod anterior GH translation during ER/ IR and extension compared to R PT-OP-K Range of Motion Start: 01/13/20 10:08 Freq: Status: Active Protocol: Document 01/12/20 16:50 HH (Rec: 01/13/20 13:05 [email or web address]) Shoulder Goniometric Range of Motion Shoulder Right Active Shoulder ROM WFL Yes Testing Position Standing Flexion 175 Extension 60 Abduction 170 External Rotation at 90 degrees 90 Abduction Internal Rotation 90 Left Active Shoulder ROM WFL Yes Testing Position Standing Flexion 165 Extension 55 Abduction 160 External Rotation at 90 degrees 88 Abduction Internal Rotation 72 Shoulder ROM Limitations Shoulder ROM Limitations Soft Tissue Tightness,Pain Comments radiating L shoulder pain to bicep during internal rotation at endrange PT-OP-L Special Tests Start: 01/13/20 10:08 Freq: Status: Active Protocol: Document 01/12/20 16:50 HH (Rec: 01/13/20 13:05 [email or web address]) Special Tests Shoulder Special Tests elbow lift Test Results +ve L Comments instruction : L hand on right shoulder and lift elbow pt unable to perform lift off. Lift-Off Rotator Cuff Test Results -ve Yergason's Biceps Test Results -ve Speed's Biceps Test Results -ve Empty Can Test Results +ve L Comments unable to point thumb down to floor d/t pain Belly Press Test Results -ve B AC Joint Compression Test Results +ve L side PT-OP-M Strength Start: 01/13/20 10:08 Freq: Status: Active Protocol: Document 01/12/20 16:50 HH (Rec: 01/13/20 13:05 [email or web address]) Shoulder Strength Shoulder Manual Muscle Testing Right Flexion 5 Normal Extension 5 Normal Abduction (C5) 5 Normal Adduction 5 Normal External Rotation 5 Normal Internal Rotation 5 Normal Reason Not Measured Pain Left Flexion 4 Good Extension 4+ Good+ Abduction (C5) 4- Good- External Rotation 4- Good- Internal Rotation 4+ Good+ Reason Not Measured Pain Comments L radiating shoulder pain reproduced with resisted L ER with elbow at 90 degrees. PT-OP-Q Treatments Start: 01/13/20 10:08 Freq: Status: Active Protocol: Document 02/08/20 13:47 HH (Rec: 02/08/20 15:06 HH [email or web address]) Therapeutic Exercises Supine Exercises supine ER/IR Side bilateral Equipment Used 2 lbs ball Sitting Exercises seated IR ER Side bilateral Equipment Used 2 lbs ball Reps/Minutes 8 x2 Standing Exercises shoulder horizontal abd Side bilateral Equipment Used level 2 Reps/Minutes 2 mins scap retraction Side bilateral Equipment Used level 2 Reps/Minutes 2 mins Shoulder Extension Standing Exercise Name extended elbow Side bilateral Equipment Used level 1 Reps/Minutes 4 mins Shoulder IR Standing Exercise Name PVC bar pull up from hip Side bilateral Reps/Minutes 4 mins Manual Therapy Treatment Soft Tissue Mobilization 1 Body Location Pec major, anterior left shoulder,infraspinatus, supraspinatus Mobilization Type Cross-Friction Intensity/Depth Superficial Body Position Supine PT-OP-R Modalities Start: 01/13/20 10:08 Freq: Status: Active Protocol: Document 01/14/20 13:00 DLM (Rec: 01/15/20 17:40 DLM [id number]) Hot Pack/Cold Pack Treatment Cold Pack Location left shoulder Patient Position Supine Treatment Duration (minutes) 10 Patient Tolerance Good Comments at end of treatment PT-OP-T Assessment and Plan Start: 01/13/20 10:08 Freq: Status: Active Protocol: Document 02/08/20 13:47 HH (Rec: 02/08/20 15:06 [email or web address]) Physical Therapy Assessment Goals strength Costume Shop Coordinator Goal (LTG) Pt reaches 4+/5 for all direction on L shoulder able to do assisted/ knee/ full push up everyday shoulder IR Residential Goal (LTG) Pt reaches WFL internal rotation on L side. (thumb able to point down) return to sports Residential Goal (LTG) Pt reaches 4+/5 for all direction on L shoulder able to do assisted/ knee/ full push up everyday. She also returns to mountain biking 1x/ week Assessment Summary Assessment Pt showed improvements since IE. Her IR tends to improve right after warm up ex. And spent time today on movement education to facilitate scap retraction during GH ext and IR. Pt denied pain and discomfort to reach back at the end of session. Pt requested to be d.c Physical Therapy Plan Discharge Physical Therapy Discharge Reasons Goals Met
== END 2020-02-09 07:54 ==
LOC: PHYS 13:45
PROVIDERS: PCP Family Medicine; Referring Provider Family Medicine; Visit Provider Family Medicine
DX: M75.80 Other shoulder lesions, unspecified shoulder (principal)
CPT/HCPCS: 97110; 97112; 97140; 97161